=== PATIENT | male | born 1945 | race Asian ===

== ENCOUNTER 2018-04-19 20:59 | Emergency (ER) | payer SELFPAY ==
[~2018-04-19] VITALS: Ht 154.9 cm; Wt 71.0 kg
[2018-04-19] MEDS ORDERED: HYDROmorphone 2 MG/ML, 1ML ONE (22:47)
[2018-04-19] MEDS ORDERED: HYDROmorphone 2 MG/ML, 1ML IM ONE (23:00)
[2018-04-19 23:51] VITALS: BP 104/68
== END 2018-04-19 23:52 | disposition home or self-care (01) ==
LOC: ED 23:45
DX: S42.202A Unspecified fracture of upper end of left humerus, initial encounter for closed fracture (principal); W01.0XXA Fall on same level from slipping, tripping and stumbling without subsequent striking against object, initial encounter; Y93.89 Activity, other specified; Y92.89 Other specified places as the place of occurrence of the external cause; Y99.8 Other external cause status
CPT/HCPCS: 73060; 73564; 96372; 99284; J1170